=== PATIENT | female | born 1970 | race Caucasian/White ===

== ENCOUNTER 2017-09-07 06:00 | Day surgery (SDC) | payer OTHER ==
[~2017-09-07 06:00] MED LIST: MSM500 MG PO; VITAMIN D5000 UNIT PO
== END 2017-09-07 13:45 | disposition home or self-care (01) ==
LOC: CIR.AMB 06:00
DX: N84.0 Polyp of corpus uteri (principal)

== ENCOUNTER 2019-02-26 07:48 | Outpatient (CLI) | payer OTHER | END 2019-02-26 07:51 | disposition home or self-care (01) | LOC: SONOGRAMA 07:48 | DX: E04.1 Nontoxic single thyroid nodule (principal) ==

== ENCOUNTER 2023-03-24 08:48 | Outpatient (CLI) | payer OTHER | END 2023-03-24 08:59 | disposition home or self-care (01) | LOC: SONOGRAMA 08:48 | PROVIDERS: ATTEND Obstetrics & Gynecology Maternal & Fetal Medicine | DX: N84.0 Polyp of corpus uteri (principal) ==